=== PATIENT | female | born 1965 | race Caucasian/White ===

== ENCOUNTER → 2017-03-31 | Outpatient (CLI) | payer BC ==
[2017-03-31 10:48] LABS: Basophils # (A) 0.1 k/uL (0-0.2); Basophils % (A) 1 %; Eosinophils # (A) 0.2 k/uL (0-0.7); Eosinophils % (A) 2 %; HCT 40.9 % (34.0-46.0); HGB 13.7 gm/dL (11.4-16.0); Lymphocytes # (A) 2.9 k/uL (1.0-4.8); Lymphocytes % (A) 36 %; MCH 30.6 pg (25.0-35.0); MCHC 33.5 g/dL (31.0-37.0); MCV 91.3 fL (80.0-100.0); Mean Platelet Volume 7.4; Monocytes # (A) 0.2 k/uL (0-1.0); Monocytes % (A) 3 %; Neutrophils # (A) 4.6 k/uL (1.3-7.7); Neutrophils % (A) 57 %; Platelet Count 264 k/uL (150-450); RBC 4.48 m/uL (3.80-5.40); RDW 13.6 % (11.5-15.5); WBC 8.1 k/uL (3.8-10.6)
[2017-03-31 10:57] LABS: ALT 29 U/L (9-52); AST 19 U/L (14-36); Albumin 4.6 g/dL (3.5-5.0); Alkaline Phosphatase 57 U/L (38-126); Anion Gap 10 mmol/L; Blood Urea Nitrogen 17 mg/dL (7-17); Calcium 10.2 mg/dL (8.4-10.2); Carbon Dioxide 28 mmol/L (22-30); Chloride 102 mmol/L (98-107); Glucose 83 mg/dL (74-99); Potassium 4.5 mmol/L (3.5-5.1); Sodium 140 mmol/L (137-145); Total Bilirubin 0.3 mg/dL (0.2-1.3); Total Protein 7.4 g/dL (6.3-8.2)
[2017-03-31 11:09] LABS: T4, Free (Free Thyroxine) 0.88 ng/dL (0.78-2.19)
--- NOTE | 2017-03-31 12:27 | XR ---
EXAMINATION TYPE: XR chest 2V DATE OF EXAM: 03/31/2017 COMPARISON: 10/26/2014 HISTORY: 51-year-old female for nicotine dependence, degrades, uncomplicated, follow-up breast cancer , left-sided lumpectomy TECHNIQUE: Frontal and lateral views FINDINGS: The cardiomediastinal silhouette, aorta, and pulmonary vasculature are within normal limits. Mild int erstitial prominence has a chronic appearance. No consolidation or pleural effusion. Surgical clips i n the left breast. IMPRESSION: No acute cardiopulmonary process.
[2017-03-31 15:37] LABS: Progesterone <0.2 ng/mL
[2017-03-31 16:10] LABS: Hemoglobin A1C 5.2 % (4.0-6.0)
== END | disposition home or self-care (01) ==
LOC: LABWHC1 10:04
PROVIDERS: ATTEND Family Medicine
DX: F17.210 Nicotine dependence, cigarettes, uncomplicated (principal); Z00.00 Encounter for general adult medical examination without abnormal findings; E28.310 Symptomatic premature menopause; E03.9 Hypothyroidism, unspecified
CPT/HCPCS: 36415; 71046; 80053; 82672; 83001; 83002; 83036; 84144; 84439; 84443; 85025

== ENCOUNTER → 2021-04-05 | Outpatient (CLI) | payer BC ==
--- NOTE | 2021-04-05 09:17 | MR ---
MRI CERVICAL SPINE: CLINICAL HISTORY: cervical pain TECHNIQUE: Multiplanar, multisequence imaging of the cervical spine is performed without IV contrast. COMPARISON: None. FINDINGS: Sagittal images of the cervical spine show the craniocervical junction to appear within nor mal limits. The cervical and upper thoracic spinal cord is normal in caliber and signal. There is gr kelsie 1 retrolisthesis C5 on C6. Mild to moderate disc space narrowing and anterior spurring with heter ogeneous Modic type II endplate changes anteriorly and type III endplate changes posteriorly at this level otherwise the vertebral body and intravertebral disk heights are normal. Axial images at C2-C3 level show uncovertebral facet degenerative changes bilaterally causing mild le ft-sided neural foraminal narrowing. Axial images at C3-C4 levels uncovertebral facet degenerative changes bilaterally causing mild-to-mod erate bilateral neural foraminal narrowing. Axial images at C4-C5 levels from uncovertebral facet degenerative changes bilaterally causing modera te left greater than right bilateral neural foraminal narrowing. Images of C5-C6 levels with spondylolisthesis with broad-based posterior disc protrusion effacing the anterior thecal sac and causing moderate to severe bilateral neural foraminal narrowing. Axial images at C6-C7 and C7-T1 levels appear within normal limits. IMPRESSION: Multilevel degenerative changes as detailed above greatest at C5-C6 level where there is additional spondylolisthesis noted.
--- NOTE | 2021-04-05 09:23 | MR ---
EXAMINATION TYPE: MR knee LT wo con DATE OF EXAM: 04/05/2021 COMPARISON: Prior MRI left knee November 29, 2015 HISTORY: Lt knee pain swelling and locking sensation for years per patient, internal derangement TECHNIQUE: Multiplanar, multisequence imaging of the left knee is performed without IV contrast. FINDINGS: MEDIAL MENISCUS: Some increased signal in the posterior aspect posterior horn redemonstrated. LATERAL MENISCUS: Slightly truncated appearance to the posterior horn with increased signal inferiorl y extending to articular surface on current exam. Increased signal also deep inferior aspect anterior horn sagittal image 10 for reference extends to articular surface. CRUCIATE LIGAMENTS: The anterior and posterior cruciate ligaments are intact and unremarkable. COLLATERAL LIGAMENTS: The medial collateral ligament and lateral collateral ligament complex are inta ct and unremarkable. EXTENSOR MECHANISM: Visualized quadriceps and patellar tendons are intact. EFFUSION: Moderate size suprapatellar joint effusion increased in size from prior. POPLITEAL CYST: No popliteal/moore cyst. TRICOMPARTMENT SPACES: [id number] tricompartment joint space narrowing and spurring redemonstra sorin CARTILAGE: Some mild cartilaginous loss medial tibiofemoral compartment. No significant chondromalaci a patella. BONE MARROW SIGNAL: No focal abnormal marrow signal is appreciated. OTHER: No additional significant abnormality is appreciated. IMPRESSION: 1. Progression of tear lateral meniscus with now involvement through the anterior and posterior horns . 2. Moderate-sized suprapatellar joint effusion increased in size from prior study. 3. Suspected intrasubstance tear posterior horn medial meniscus is stable. 4. [id number]-[id number] tricompartment degenerative changes redemonstrated without significant change or progression from prior.
== END | disposition home or self-care (01) ==
LOC: RADMRIMAIN 07:59
PROVIDERS: ATTEND Family Medicine
DX: M17.12 Unilateral primary osteoarthritis, left knee (principal); M23.242 Derangement of anterior horn of lateral meniscus due to old tear or injury, left knee; M23.252 Derangement of posterior horn of lateral meniscus due to old tear or injury, left knee; M25.462 Effusion, left knee; M43.12 Spondylolisthesis, cervical region; M47.22 Other spondylosis with radiculopathy, cervical region; M50.322 Other cervical disc degeneration at C5-C6 level
CPT/HCPCS: 72141

== ENCOUNTER → 2024-06-10 | Outpatient (CLI) | payer BC ==
--- NOTE | 2024-06-10 10:19 | MR ---
EXAMINATION TYPE: MR knee LT wo con DATE OF EXAM: 06/10/2024 COMPARISON: Prior left knee MRI April 05, 2021. Outside left knee x-ray. HISTORY: Lt knee pain with locking and swelling, hx of meniscus repair TECHNIQUE: Multiplanar, multisequence images of the knee is performed without IV contrast. FINDINGS: MEDIAL MENISCUS: Persistent increased globular signal posterior aspect of the posterior horn and defi nitively extending to articular surface. LATERAL MENISCUS: Persistent truncated appearance with increased signal in the remnant posterior horn abutting the inferior articular surface. CRUCIATE LIGAMENTS: The anterior and posterior cruciate ligaments are intact and unremarkable. COLLATERAL LIGAMENTS: The medial collateral ligament and lateral collateral ligament complex are inta ct. New increased signal in the lateral collateral ligament proper. EXTENSOR MECHANISM: Visualized quadriceps and patellar tendons are intact. EFFUSION: Persistent moderate size suprapatellar joint effusion. POPLITEAL CYST: No popliteal/moore cyst. TRICOMPARTMENT SPACES: Persistent mild to moderate tricompartment joint space loss with mild spurring . CARTILAGE: Some new mild fissuring or chondromalacia patella. Some new cartilaginous loss lateral tib iofemoral compartment. Persistent mild cartilage loss medial tibiofemoral compartment. BONE MARROW SIGNAL: No focal abnormal marrow signal is appreciated. OTHER: No additional significant abnormality is appreciated. IMPRESSION: 1. New sprain injury of the lateral collateral ligament proper. 2. Mild to moderate joint compartment degenerative changes slightly more prominent than prior study a s detailed above. 3. Evidence of prior surgery on the lateral meniscus with stable full-thickness tear of the remnant m eniscus noted. 4. Persistent stable at least intrasubstance tear posterior aspect posterior horn medial meniscus. 5. Stable moderate-size suprapatellar joint effusion. [facility], , 06/10/2024 10:16 AM
== END | disposition home or self-care (01) ==
LOC: RADMRIMAIN 08:19
PROVIDERS: ATTEND Orthopaedic Surgery
DX: M17.12 Unilateral primary osteoarthritis, left knee (principal); S83.242A Other tear of medial meniscus, current injury, left knee, initial encounter; M25.462 Effusion, left knee

== ENCOUNTER → 2024-06-25 | Outpatient (CLI) | payer BC ==
--- NOTE | 2024-06-29 12:58 | BMR ---
EXAM DATE: 06/25/2024 EXAM DESCRIPTION: MRI-Breast Bilat (W/WO Contrast) INDICATION: History of right breast carcinoma post lumpectomy. COMPARISON: Prior mammogram dated 08/03/2020 and bilateral breast ultrasound dated 05/24/2022. CONTRAST: 8.9 cc Gadavist contrast material. TECHNIQUE: Multi sequence multiplanar MR imaging of the breasts was obtained. Subsequently, after the uneventful intravenous administration of Gadavist contrast material, 6 dynamic sequences were then obtained. Post processing was performed utilizing a [employer] CAD workstation. FINDINGS: The breast are composed of heterogeneous fibroglandular tissue. There is mild background parenchymal enhancement identified. No axillary or internal mammary lymphadenopathy. No focal skin thickening or nipple retraction. The bone marrow signal intensity is unremarkable. No adenopathy in the visualized mediastinum. T2 weighted images demonstrated no dominant cystic lesion in either breast. Intact bilateral subpectoral silicone implants. A 1.5 cm T2 bright lesion in the anterior right hepatic lobe likely representing a benign liver cyst. Post contrast images demonstrated no abnormal enhancement in either breast to suggest malignancy. A 0.8 cm reniform ovoid mass in the superolateral quadrant of right anterior breast with bright signal intensity on corresponding T2 weighted images and progressive kinetics on post contrast images likely represent a small fibroadenoma or a benign intramammary lymph node. Several foci of progressive enhancements in both breasts are likely related to benign background parenchyma. There is no abnormal signal or enhancement in the chest wall or subcutaneous tissue. IMPRESSION: 1. No MR evidence of malignancy in the left breast. 2. A 0.8 cm ovoid reniform mass with progressive kinetics and bright signal intensity on corresponding T2 weighted images likely represent a small fibroadenoma or benign intramammary lymph node. Correlate with targeted right breast ultrasound examination for further characterization. 3. No axillary or internal mammary lymphadenopathy. 4. Intact bilateral silicone implants. MTDD
== END | disposition home or self-care (01) ==
LOC: RADMRIMAIN 08:14
PROVIDERS: ATTEND Plastic Surgery
DX: N64.4 Mastodynia (principal); N63.20 Unspecified lump in the left breast, unspecified quadrant; N63.10 Unspecified lump in the right breast, unspecified quadrant; Z98.82 Breast implant status
CPT/HCPCS: 77049; A9585

== ENCOUNTER → 2024-07-26 | Outpatient (CLI) | payer BC ==
[2024-07-26 15:22] LABS: Anion Gap 12.8 mmol/L (4.00-12.00); Carbon Dioxide 24.2 mmol/L (21.6-31.8); Potassium 4.4 mmol/L (3.5-5.5)
[2024-07-26 15:31] LABS: Basophils # (A) 0.06 X 10*3/uL (0.00-0.10); Basophils % (A) 0.8 %; Eosinophils # (A) 0.19 X 10*3/uL (0.04-0.35); Eosinophils % (A) 2.7 %; HGB 14.1 g/dL (12.0-15.0); Lymphocytes # (A) 2.29 X 10*3/uL (0.90-5.00); MCH 30.3 pg (27.0-32.0); MCHC 32.8 g/dL (32.0-37.0); MCV 92.5 FL (80.0-97.0); Mean Platelet Volume 9.8 FL (9.5-12.2); Monocytes # (A) 0.38 X 10*3/uL (0.20-1.00); Monocytes % (A) 5.3 %; NRBC Per 100 WBC 0 X 10*3/uL (0.00-0.01); Neutrophils # (A) 4.22 X 10*3/uL (1.80-7.70); Neutrophils % (A) 58.9 %; Platelet Count 302 X 10*3/uL (140-440); RBC 4.65 X 10*6/uL (4.10-5.20); WBC 7.16 X 10*3/uL (4.50-10.00)
== END | disposition home or self-care (01) ==
LOC: LABPAT 10:15
PROVIDERS: ATTEND Orthopaedic Surgery
DX: Z01.818 Encounter for other preprocedural examination (principal); I51.7 Cardiomegaly; M23.92 Unspecified internal derangement of left knee
CPT/HCPCS: 80051; 85025; 93005

== ENCOUNTER → 2024-07-29 | Day surgery (SDC) | payer BC ==
[2024-07-26 10:11] VITALS: BMI 27.6
[~2024-07-29] MED LIST: LIDOCAINE 1% INJ 10MG/ML (20 ML MDV) ONE; MIDAZOLAM 2 MG/2 ML VIAL ONE; PROPOFOL 10 MG/ML 20 ML VIAL IV ONE; fentaNYL (PF) 50 MCG/ML 2 ML AMP ONE
--- NOTE | 2024-07-29 01:25 | HP ---
HISTORY AND PHYSICAL HISTORY OF PRESENT ILLNESS: Daniella Moreno is a 58-year-old patient seen with progressive left knee pain. After having treatment options discussed, status post left knee arthroscopy. Consent was obtained. PAST MEDICAL HISTORY: Breast cancer. SURGICAL HISTORY: Breast biopsy and shoulder arthroscopy. DAILY MEDICATIONS: None. ALLERGIES: None reported. SOCIAL HISTORY: She denies current tobacco use. PHYSICAL EVALUATION OF THE LEFT KNEE: Her range of motion is 0 to 120 degrees. She has a [id number]-ru-cecrqcin effusion present. Tenderness along the medial and lateral joint lines. Positive medial Curtis's. Positive lateral Curtis's. Ligament stable. Hip rotation without pain. Distal neurovascular exam is intact. IMAGING: Radiographs of the left knee revealed moderate osteoarthritic changes. MRI of left knee revealed lateral meniscal tear, moderate effusion, and osteoarthritic changes. IMPRESSION: Internal derangement of left knee lateral meniscal tear. PLAN: Left knee arthroscopy with partial lateral meniscectomy and debridement. MMODL / IJN: [id number] /
[2024-07-29 11:28] VITALS: RESP 16; TEMP 97.2
[2024-07-29] MEDS: LACTATED RINGERS 1,000 ML IV SCH (11:35)
[2024-07-29] MEDS: LIDOCAINE 1% (10MG/ML) FOR IV START INTRADERMA STA (11:35)
[2024-07-29] MEDS: IV FLUID CONTINUATION 1,000 ML IV ONE (11:35)
[2024-07-29] MEDS: ONDANSETRON 4 MG/2 ML VIAL IVP ONE (11:39)
[2024-07-29] MEDS: DEXAMETHASONE SOD PHOSPHATE 4 MG/ML 1 ML VIAL IV ONE (11:40)
[2024-07-29] MEDS: MIDAZOLAM 2 MG/2 ML VIAL IV ONE (11:42)
[2024-07-29] MEDS: BUPIVACAINE (PF) 0.5% 30 ML VIAL MISCELLANE ONE ×2 (12:25→13:04)
[2024-07-29] MEDS: ceFAZolin 2 GM in DEXTROSE 5% IN WATER 50 ML IVPB PRN (12:27)
--- NOTE | 2024-07-29 13:24 | P.OP ---
Date of Procedure: 07/29/24 Preoperative Diagnosis: Internal derangement left knee Postoperative Diagnosis: 1. Tear medial and lateral meniscus left knee 2. Grade IV chondromalacia medial femoral condyle left knee 3. Reactive synovitis medial, lateral and suprapatellar compartments left knee 4. Grade II chondromalacia patella left knee Procedure(s) Performed: 1. Arthroscopic partial medial and lateral meniscectomy left knee 2. Arthroscopic microfracture medial femoral condyle left knee 3. Arthroscopic partial synovectomy medial, lateral and suprapatellar compartments left knee 4. Arthroscopic chondroplasty patella left knee Anesthesia: GETA Surgeon: Joe Darby Estimated Blood Loss (ml): 5 Pathology: none sent Condition: stable Disposition: PACU Indications for Procedure: 58-year-old patient seen with progressive left knee. After having treatment options discussed, she elected to proceed with arthroscopy. Operative Findings: See description of procedure Description of Procedure: Patient was taken to the operative suite. Patient underwent a general anesthetic by the department of anesthesia. Patient was given preoperative antibiotics. The left lower extremity was placed in a well-padded arthroscopic leg pulliam. The left leg was prepped and draped in the normal sterile orthopedic fashion. A lateral parapatellar and suprapatellar incision was made. Trochars were inserted. Arthroscopy was initiated. Suprapatellar pouch revealed diffuse thick reactive synovitis. The patellofemoral joint appeared to articulate congruently. There was grade II chondromalacia of the patella with some osteochondral flap tears present. The scope was guided into the medial gutter. No loose bodies or plica were identified. The scope was then guided into the medial compartment. A medial parapatellar incision was made. Trocar inserted followed by probe. There was a complex tear involving the posterior horn of the medial meniscus. There were grade III/IV chondromalacia changes medial femoral condyle with osteochondral flap tears as well as grade II chondromalacia changes the medial tibial plateau. There was some thick reactive synovitis anteriorly. I performed a partial medial meniscectomy getting down to stable meniscal tissue. I performed a chondroplasty of the medial femoral condyle getting down to stable osteochondral tissue. I performed a partial synovectomy decompressing the thick reactive synovitis. I did note an area of grade IV chondromalacia involving the medial femoral condyle measuring just under centimeter. I introduced a microfracture awl and I performed a microfracture to that area of grade IV chondromalacia penetrating the bone with resultant bleeding at the microfracture site. The residual meniscus was found to be stable. The residual osteochondral surface was stable. There was good decompression of the synovitis. Scope and probe were then guided into the intercondylar notch. Cruciates were identified, probed and found to be stable. The scope and probe were then guided into lateral compartment. There was a radial tear involving the mid body lateral meniscus. There were grade II chondromalacia changes lateral tibial plateau without tears. There were thick reactive synovitis anteriorly. I performed a partial lateral meniscectomy getting down to stable meniscal tissue. I performed a partial synovectomy decompressing the thick reactive synovitis. The residual meniscus was probed and was found to be stable. The residual osteochondral surface was stable. There was good decompression of the synovitis. The scope was in guided back into the suprapatellar compartment. I introduced a motorized shaver into the suprapatellar compartment. I debrided some piecemeal fragments of meniscus that I encountered. I performed a chondroplasty of the patella getting down to stable osteochondral tissue. I performed a partial synovectomy decompressing the reactive synovitis. The residual osteochondral surface of the patella appeared stable. There was good decompression of the synovitis. I took 1 more look around the entire knee, no residual debris. Instruments were now removed from the joint. The joint was infiltrated with .25% Marcaine. Steri-Strips were applied to the portal sites. Sterile dressings were applied. The patient was placed into a ERIN hose. No tourniquet was utilized. The patient was awakened, transferred to a bed and taken to recovery stable satisfactory condition.
[2024-07-29] MEDS: HYDROmorphone 0.5 MG/0.5 ML SYRINGE IVP PRN (13:26)
[2024-07-29 14:11] VITALS: BP 151/84; PULSE 77
== END | disposition home or self-care (01) ==
LOC: OR 10:56
PROVIDERS: ATTEND Orthopaedic Surgery
DX: S83.241A Other tear of medial meniscus, current injury, right knee, initial encounter (principal); S83.282A Other tear of lateral meniscus, current injury, left knee, initial encounter; M65.862 Other synovitis and tenosynovitis, left lower leg; M22.42 Chondromalacia patellae, left knee; Z85.3 Personal history of malignant neoplasm of breast; X58.XXXA Exposure to other specified factors, initial encounter
CPT/HCPCS: 29880; 29876; 29879; J2250; J1100; J0690; J2405; J2003; J3010; J2704; J1171; J0665